=== PATIENT | female | born 1965 | race Caucasian/White ===

== ENCOUNTER → 2017-05-12 | Outpatient (CLI) | payer OTHER ==
--- NOTE | 2017-05-12 09:54 | RAD ---
Examination: MRI of the right shoulder without contrast HISTORY: History of right shoulder pain with decreased range of motion. COMPARISON: None available TECHNIQUE: Multiplanar, multisequence MR imaging of the right shoulder performed without contrast FINDINGS: The long head of the biceps tendon is within the bicipital groove. The attachment of the long long head of the biceps tendon to the labrum anchor grossly appears intact. The alignment of the subscapularis tendon grossly appears intact. There is a 1.1 x 1.0 cm focus of full-thickness tear of the anterior fibers of the supraspinatus tendon with minimal extension of fluid in the subacromial subdeltoid bursa. Moderate increased signal identified within the supraspinatus tendon likely tendinosis. There may be a small 1 cm focus of interstitial tear within the supraspinatus tendon. The attachment of the infraspinatus tendon, teres minor tendon grossly appears intact. The muscle bulk grossly appears unremarkable. There is mild increased signal identified throughout the labrum likely degeneration. Mild degenerative changes acromioclavicular joint. The acromion is type II. The humerus head is within the glenoid. Fat is present within the rotator interval. IMPRESSION: 1. Small focus of full-thickness tear anterior fibers of the supraspinatus tendon. There is tendinosis of the supraspinatus tendon with a probable small focus of interstitial tear within the supraspinatus tendon. 2. Mild degenerative changes throughout the labrum. 3. 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 Electronically signed by: Ulices Lewis MD (05/12/2017 9:50 AM) [id number]
== END | disposition home or self-care (01) ==
LOC: MRI 07:46
PROVIDERS: ATTEND Nurse Practitioner Gerontology
DX: M19.011 Primary osteoarthritis, right shoulder (principal)
CPT/HCPCS: 73221

== ENCOUNTER 2017-08-11 05:35 | Day surgery (SDC) | payer OTHER ==
[~2017-08-11] VITALS: Ht 165.1 cm; Wt 113.4 kg
[~2017-08-11 05:35] MED LIST: BUPIVACAINE MPF 0.5% 30 ML VIAL. ONE; LIDOCAINE 1% PF 30 ML VIAL. ONE
[2017-08-11] MEDS ORDERED: EPINEPHrine VIAL 30 MG/30 ML VIAL ONE (05:38)
[2017-08-11] MEDS ORDERED: CLINDAMYCIN 900MG PREMIX 50 ML IV ONE (06:00)
[2017-08-11] MEDS ORDERED: HYDROmorphone 2 MG/ML VIAL IV PRN (07:00)
[2017-08-11] MEDS ORDERED: fentaNYL PF VIAL 100 MCG/2 ML VIAL IV PRN ×2 (07:00)
[2017-08-11] MEDS ORDERED: PROCHLORPERAZINE 10 MG/2 ML VIAL. IV PRN (07:00)
[2017-08-11] MEDS ORDERED: MORPHINE SULFATE 2 MG/ML DISP.SYRIN. IV PRN (07:00)
[2017-08-11] MEDS ORDERED: IV RINGERS,LACTATED 1000ML 1,000 ML IV SCH (07:00)
[2017-08-11] MEDS ORDERED: ONDANSETRON PF 4 MG/2 ML VIAL. IV PRN (07:00)
[2017-08-11] MEDS ORDERED: LIDOCAINE 1% PF 2 ML VIAL. ID PRN (07:00)
[2017-08-11] MEDS ORDERED: fentaNYL PF VIAL 100 MCG/2 ML VIAL ONE (07:01)
[2017-08-11] MEDS ORDERED: ROCURONIUM 100 MG/10 ML VIAL. ONE (07:01)
[2017-08-11] MEDS ORDERED: MIDAZOLAM HCL/PF 2 MG/2 ML VIAL. ONE (07:01)
[2017-08-11] MEDS ORDERED: LIDOCAINE 2% PF Vial for OR 5 ML VIAL. ONE (07:02)
[2017-08-11] MEDS ORDERED: PROPOFOL 20 ML IV ONE (07:02)
[2017-08-11] MEDS ORDERED: DEXAMETHASONE SOD PHOS 20 MG/5 ML VIAL. ONE (07:02)
[2017-08-11] MEDS ORDERED: ROPIVacaine 0.5% PF 30 ML VIAL. ONE (07:21)
--- NOTE | 2017-08-11 07:38 | DISCH ---
DISCHARGE INSTRUCTIONS Condition on Discharge Condition on Discharge: Stable Activity After Discharge Activity Instructions for Disc: Other, see below Other activity instructions: arm to remain in sling Bathing Instructions: Shower-keep dressing dry Weight Bearing Status after Di: Non weight bearing Diet after Discharge Diet after Discharge: Regular Wound Incision Care Wound/Incision Care: Ice to area for comfort, Keep wound/cast CDI, Change dressing Contacting the DR. after DC Call your doctor for: Concerns you may have Follow-Up Follow up with: Jose in 2wks JG SAWANT II, MD Aug 11, 2017 07:38
[2017-08-11] MEDS ORDERED: GLYCOPYRROLATE 1 MG/5 ML VIAL. ONE (07:48)
[2017-08-11] MEDS ORDERED: NEOSTIGMINE METHYLSULFATE 5 MG/5 ML SYRINGE. ONE ×2 (07:48→07:53)
[2017-08-11] MEDS ORDERED: PHENYLEPHRINE in 0.9% NACL PF 1 MG/10 ML DISP.SYRIN. IV ONE (08:01)
[2017-08-11] MEDS ORDERED: PHENYLEPHRINE 10 MG/ML VIAL. ONE (08:01)
[2017-08-11] MEDS ORDERED: ONDA4TAB12 PO (09:25)
[2017-08-11] MEDS ORDERED: OXYC-323 PO (09:31)
[2017-08-11] MEDS ORDERED: DOCU-109 PO (09:34)
--- NOTE | 2017-08-11 09:58 | PDOC ---
BRIEF OPERATIVE NOTE Date: Aug 11, 2017 Pre-Op Diagnosis Incomplete R RTC tear, AC DJD Post-Op Diagnosis same Procedure Performed R shoulder scope, RTC repair, DCE Surgeon Jose Director Career [employer] Anesthesiologist [facility] Anesthesia Type: General, Regional Blood Loss 10mL Complications none JG SAWANT II, MD Aug 11, 2017 09:58
[2017-08-11] MEDS ORDERED: ALBUTEROL SULFATE 2.5 MG/3 ML NEBU. ONE (10:04)
[2017-08-11] MEDS ORDERED: ALBUTEROL SULFATE 2.5 MG/3 ML NEBU. NEB ONE (10:15)
--- NOTE | 2017-08-11 10:32 | OP ---
DATE OF SURGERY: 08/11/2017 SURGEON: Sherwin Sawant MD STAFF CYTOTECHNOLOGIST: Loretta Mueller. ANESTHESIA: General plus regional nerve block. COMPLICATIONS: None. PREOPERATIVE DIAGNOSES: 1. Right shoulder high-grade interstitial rotator cuff tear. 2. Right shoulder acromioclavicular degenerative changes, primary. PROCEDURES PERFORMED: 1. Right shoulder arthroscopic rotator cuff repair. 2. Right shoulder arthroscopic distal clavicle excision. ESTIMATED BLOOD LOSS: 10 mL. COMPLICATIONS: None. COMPONENTS INSERTED: [employer] HEALICOIL suture anchor. REASON FOR PROCEDURE: The patient is a very pleasant female who I had been following for her persistent shoulder pain that was interfering with her activities of daily living and refractory to conservative therapies including anti-inflammatories, corticosteroid injections and physical therapy. Because of her persistent pain and shoulder dysfunction and failure of conservative therapies, we had discussion of risks, benefits, alternatives to the above procedure and she elected to proceed. DESCRIPTION OF PROCEDURE: The patient was greeted in the preoperative area by myself. Correct extremity was marked and verified. She was taken to the operative suite and antibiotics were started en route. Once in the OR, she was transferred gently supine to the OR table and had successful placement of a regional nerve block by the anesthesiology team. She then underwent successful induction of general anesthetic. We set her up in a beach chair position with all pressure points padded and a large pad under her hips and legs. Her C-spine was maintained in neutral position. We then proceeded to prep and drape her upper extremity and shoulder girdle in our usual sterile fashion including [place] at the periphery. We then performed a standard preoperative timeout. After this, I palpated and marked the surface anatomy and used the spinal needle to localize the posterosuperior portal and incised skin in accordance with this. I introduced the blunt arthroscopic trocar into the glenohumeral joint followed by the camera. I then used a spinal needle to localize the anterosuperior portal and incised skin in accordance with this and then introduced my blunt arthroscopic trocar. I then introduced my probe and conducted my diagnostic arthroscopy. She had intact cartilage at the glenohumeral joint. No loose bodies or subcoracoid recess. Labrum was intact circumferentially. The biceps was without pathology. No loose bodies in the glenohumeral joint. I then inspected rotator cuff. It was attached circumferentially. However, there was some slight yellowish discoloration at the leading edge that corresponded to her interstitial pathology on MRI. Therefore, I used a spinal needle through a lateral portal placement and passed the PDS suture through this to sandoval it. I then removed my arthroscopic instrumentation and repositioned my camera in the subacromial space. This allowed me visualization of the suture and I was easily able to penetrate the tendon substance with a blunt arthroscopic trocar. I then proceeded to debride this area which left me approximately 1 cm x 1 cm defect in the supraspinatus. After this, I proceeded to use electrocautery and shaver to expose the distal clavicle and then through an anterosuperior portal, I used my hudson to remove the distal clavicle equal to the hudson. An pharmacy assistant pushed downward pressure on the distal clavicle to help me debride the top. I left the superior and posterior capsule intact well and had removed enough bone. After this, I directed my attention to placing my suture anchor. I had initially placed a Suturefix suture anchor; however, this particular anchor appeared to be missing a button on the insertion and I felt that this probably was a defective product. Therefore, I removed this anchor which did not fully seat. I did not disrupt much bone at all more than I had drilled. I then placed HEALICOIL anchor into this hole and then I used a [employer] suture passing device to shuttle 2 sutures through the simple configuration and tied these down with arthroscopic knots and techniques. I cut the ends of the suture. I inspected my repair. There was no gapping on gentle rotation. I was happy with the repair. I then reintroduced a shaver through lateral portal and removed any loose bony debris. After this, I removed all excess arthroscopic instrumentation and portals were closed with simple interrupted 2-0 nylon. She tolerated this procedure well. At the conclusion of surgery, the shoulder was cleansed and dried and sterile dressing was applied followed by an abduction pillow sling. She was then laid gently supine and transferred supine to recovery room cart and taken to PACU in stable and extubated condition. Postoperative plan is nonweightbearing x 4 weeks. We will see her back in my clinic in 2 weeks. She will get started on physical therapy later this week. We will see her back in 2 weeks, sooner should problems arise. SHERWIN SAWANT MD DR: Aleyda JOB#: [id number] / [id number] JOSE JUAN
[2017-08-11 11:56] VITALS: BP 105/67
== END 2017-08-11 12:27 | disposition home or self-care (01) ==
LOC: SURG 05:35
PROVIDERS: ATTEND Orthopaedic Surgery Sports Medicine
DX: S46.011A Strain of muscle(s) and tendon(s) of the rotator cuff of right shoulder, initial encounter (principal); X58.XXXA Exposure to other specified factors, initial encounter; Y93.89 Activity, other specified; Y92.89 Other specified places as the place of occurrence of the external cause; Y99.8 Other external cause status; K21.9 Gastro-esophageal reflux disease without esophagitis; E66.9 Obesity, unspecified; Z90.710 Acquired absence of both cervix and uterus; Z87.39 Personal history of other diseases of the musculoskeletal system and connective tissue; Z88.0 Allergy status to penicillin
CPT/HCPCS: 29824; 29827; J0171; J1100; J2250; J2370; J2704; J2710; J2795; J3010; J3490; J7613; C1782; J7120; J2001

== ENCOUNTER → 2020-01-02 | Outpatient (CLI) | payer OTHER ==
[~2020-01-02] MED LIST changes: -BUPIVACAINE MPF 0.5% 30 ML VIAL. ONE; +DOCU-109 PO; -LIDOCAINE 1% PF 30 ML VIAL. ONE; +ONDA4TAB12 PO; +OXYC1TAB15 PO
--- NOTE | 2020-01-02 10:23 | RAD ---
MR of the left shoulder HISTORY: Left shoulder pain after a fall 5 months ago. TECHNIQUE: Routine multiplanar sequences are obtained. FINDINGS: Acromioclavicular joint is mildly degenerative. Rotator cuff tendinosis. Linear defect of the anterior supraspinatus tendon footplate attachment compatible with a deep articular side tear. This does appear to violate the articular surface but no definite extension through the bursal layer. No retraction. There is more generalized irregularity of the articular and bursal surfaces of the rotator cuff compatible with degenerative fraying. Subscapularis tendon appears intact. Trace subdeltoid bursal effusion. No significant glenohumeral joint effusion. No evidence of labral tear or detachment. The superior labrum is irregular compatible with degeneration. Biceps tendon appears intact. No acute fracture. No aggressive bone destruction. No acute soft tissue abnormality. IMPRESSION: 1. Small but very deep linear articular surface tear of the anterior supraspinatus tendon footprint. More generalized rotator cuff tendinosis and surface fraying. 2. Superior labral degeneration. Electronically signed by: Uriel Saleh MD (01/02/2020 10:20 AM) [id number]
== END | disposition home or self-care (01) ==
LOC: MRI 07:45
PROVIDERS: ATTEND Family Medicine
DX: M75.102 Unspecified rotator cuff tear or rupture of left shoulder, not specified as traumatic (principal); M19.012 Primary osteoarthritis, left shoulder
CPT/HCPCS: 73221

== ENCOUNTER → 2020-01-16 | Outpatient (CLI) | payer OTHER ==
--- NOTE | 2020-01-16 09:53 | RAD ---
EXAM: 3 Views Left Shoulder DATE: 01/16/2020 12:00 AM INDICATION: Left shoulder pain. COMPARISON: No Prior FINDINGS: There is no evidence for acute fracture or dislocation. AC joint is congruent. AC joint degenerative changes are seen. Humeral head is not high riding. Minimal left lung base opacities with equivocal blunting of left costophrenic angle. IMPRESSION: 1. No acute fracture or dislocation. 2. Mild AC joint degenerative change. 3. Left lung base patchy opacities with equivocal trace pleural effusion. Electronically signed by: Pete Stewart MD (01/16/2020 9:50 AM) [id number]
== END | disposition home or self-care (01) ==
LOC: PMGORTHO 07:59
PROVIDERS: ATTEND Orthopaedic Surgery Sports Medicine
DX: M19.012 Primary osteoarthritis, left shoulder (principal); J98.4 Other disorders of lung
CPT/HCPCS: 73030